=== PATIENT | female | born 1965 | race African-American/Black ===

== ENCOUNTER 2017-03-27 08:47 | Emergency (ER) | payer MEDICARE, MEDICAID ==
[~2017-03-27] VITALS: Ht 172.7 cm; Wt 99.8 kg
[~2017-03-27 08:47] MED LIST: CIPRO500 MG PO; IBUPROFEN600 MG PO; NKM; PYRIDIUM100 MG ORAL
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
[2017-03-27] MEDS ORDERED: NORCO 5-325 TA1 EACH ORAL (09:53)
[2017-03-27] MEDS ORDERED: IBUPROFEN600 MG ORAL (09:53)
--- NOTE | 2017-03-27 10:00 | Diagnostic Imaging Report ---
Indication: Pain Findings: 3 views of the right shoulder were obtained. No acute fractures, malalignment, erosions or periostitis are identified. Soft tissues are unremarkable. Impression: Negative for acute injury
[2017-03-27 10:04] VITALS: BP 123/75
== END 2017-03-27 10:04 | disposition home or self-care (01) ==
LOC: EMR 09:21
DX: S43.401A Unspecified sprain of right shoulder joint, initial encounter (principal); X58.XXXA Exposure to other specified factors, initial encounter; Y93.9 Activity, unspecified; Y92.9 Unspecified place or not applicable; Z88.0 Allergy status to penicillin; I10 Essential (primary) hypertension
CPT/HCPCS: 99283

== ENCOUNTER 2017-04-14 00:12 | Emergency (ER) | payer MEDICARE, MEDICAID ==
[~2017-04-14] VITALS: Ht 172.7 cm; Wt 102.1 kg
[~2017-04-14 00:12] MED LIST changes: +IBUPROFEN600 MG ORAL; +NORCO 5-325 TA1 EACH ORAL
[2017-04-14] MEDS ORDERED: ZOLOFT25 MG ORAL (00:18)
[2017-04-14] MEDS ORDERED: ZYPREXA10 MG ORAL (00:18)
[2017-04-14 02:35] LABS: BASOPHILS % (AUTO) 2.2 % (0.0-2.0); LYMPHOCYTES % (AUTO) 41.8 % (20.0-45.0); MEAN CORPUSCULAR HEMOGLOBIN 31.9 PG (27.0-31.0); MEAN CORPUSCULAR HGB CONC 34.2 G/DL (32.0-36.0); MEAN CORPUSCULAR VOLUME 93 FL (80-99); MONOCYTES % (AUTO) 8.8 % (1.0-10.0); NEUTROPHILS % (AUTO) 45.3 % (45.0-75.0); PLATELET COUNT 301 K/UL (150-450); RED BLOOD COUNT 3.93 M/UL (4.20-5.40); RED CELL DISTRIBUTION WIDTH 11.9 % (11.6-14.8)
[2017-04-14 02:45] LABS: ALANINE AMINOTRANSFERASE 13 U/L (12-78); ALBUMIN/GLOBULIN RATIO 0.8 (1.0-2.7); ANION GAP 9 mmol/L (5-15); ASPARTATE AMINO TRANSFERASE 9 U/L (15-37); CALCIUM 8.9 MG/DL (8.5-10.1); CARBON DIOXIDE 27 MMOL/L (21-32); CHLORIDE 106 MMOL/L (98-107); CREATININE 0.7 MG/DL (0.55-1.30); GLOMERULAR FILTRATION RATE > 60 mL/min (>60); POTASSIUM 3.6 MMOL/L (3.5-5.1); SODIUM 142 MMOL/L (136-145); TOTAL PROTEIN 7.2 G/DL (6.4-8.2)
[2017-04-14] MEDS ORDERED: Ketorolac 30mg Inj IV ONE (03:45)
[2017-04-14] MEDS ORDERED: ALBUTEROL SULF8.5 GM INH (04:12)
[2017-04-14 04:20] VITALS: BP 123/84
--- NOTE | 2017-04-14 05:39 | Emergency Room Report ---
History of Present Illness General Chief Complaint: Upper Respiratory Illness Source: Patient Present Illness HPI Patient is a 51-year-old female who presented after increased cough with nasal congestion and as well as epistaxis. Patient had gradual onset of symptoms. She reports having a prior history of cocaine use she states last use was several months ago. She reports having some hemoptysis as well as some discomfort to her chest. She reports having no fever. She had been having upper after a nasal congestion for several weeks. Allergies: Coded Allergies: PENICILLINS (Verified Allergy, Unknown, 03/27/17) Patient History Past Medical History: see triage record Last Menstrual Period: 03/14/17 Now: No : 5 Para: 5 Reviewed Nursing Documentation: PMH: Agreed, PSxH: Agreed Nursing Documentation-PMH Hx Hypertension: Yes History Of Psychiatric Problem: Yes - Depresion, schizophrenia, substance abuse Review of Systems All Other Systems: negative except mentioned in HPI Physical Exam Vital Signs Date Time Temp Pulse Resp B/P (MAP) Pulse Ox O2 Delivery O2 Flow Rate FiO2 04/14/17 00:13 97.5 81 15 121/81 100 Room Air 04/14/17 00:37 100 Sp02 EP Interpretation: reviewed, normal General Appearance: normal inspection, well appearing, no apparent distress, alert, GCS 15 Head: atraumatic ENT: normal ENT inspection, hearing grossly normal, normal voice Neck: normal inspection, full range of motion, supple, no bony tend Respiratory: normal inspection, lungs clear, normal breath sounds, no respiratory distress, no retraction, no wheezing Cardiovascular #1: regular rate, rhythm, no edema Gastrointestinal: normal inspection, normal bowel sounds, non tender, soft, no guarding, no hernia Genitourinary: no CVA tenderness Musculoskeletal: normal inspection, back normal, normal range of motion Neurologic: normal inspection, alert, oriented x3, responsive, experimental outboard motors mechanic III-XII nml as tested, speech normal Psychiatric: normal inspection, judgement/insight normal, mood/affect normal Skin: normal inspection, normal color, no rash Medical Decision Making Diagnostic Impression: Primary Impression: Hemoptysis, unspecified Additional Impression: Anterior epistaxis ER Course The patient presented for hemoptysis. Differential diagnoses included was not limited to bronchitis, myocardial infarction, upper GI bleed, epistaxis, pulmonary embolism among others.Because of complexity of patient's case laboratory testing and imaging studies were ordered. A CT imaging of the chest read by radiology showed breast implants bilaterally without evident infiltrate or lung abnormality noted. Patient was given Toradol for pain. The patient was noted to have unremarkable laboratory testing. The patient's epistaxis appears to be related to the patient's hemoptysis. Patient is advised to use Vaseline or nares to prevent bleeding. Patient does not appear to be requiring packing at this time. The patient is advised to follow up with primary care doctor in 1-2 days. Patient is advised to return if any worsening condition or if any changes in status that are concerning. Last Vital Signs Date Time Temp Pulse Resp B/P (MAP) Pulse Ox O2 Delivery O2 Flow Rate FiO2 04/14/17 00:37 85 16 Room Air 100 04/14/17 00:13 97.5 121/81 100 Status: improved Disposition: HOME, SELF-CARE Condition: Stable Scripts Albuterol Sulfate* (ALBUTEROL SULFATE MDI*) 8.5 Gm Hfa.aer.ad 2 PUFF INH Q4H Y for cough/wheezing, #1 EA 0 Refills Prov: Hector Christianson 04/14/17 Patient Instructions: Nosebleed Hector Christianson Apr 14, 2017 05:39
--- NOTE | 2017-04-14 09:56 | Diagnostic Imaging Report ---
ndication: Chest pain Technique: IV administration nonionic contrast. Spiral acquisitions obtained from the lung bases to the lung apices. Multiplanar and 3-D reconstructions were generated. Total dose length product 1172 mGycm. CTDIvol(s) 12, 63, 34 mGy. Dose reduction achieved using automated exposure control Comparison: None Findings: There is poor quality bolus opacification of the pulmonary arteries precludes exclusion of all but large central pulmonary emboli. No evidence of thoracic aortic aneurysm or dissection. Normal caliber pulmonary arteries. No evidence of significant right ventricular dilatation. Within the upper mediastinum extending into the cervical region, there is a multiloculated gas collection which measures 2.4 x 2 cm. This is located to the right of the trachea and posterior and inferior to the thyroid lower pole. It is also located to the right of the esophagus. No other abnormal mediastinal gas is demonstrated. No evidence of pneumothorax. The esophagus and trachea appear unremarkable. The lungs demonstrate posterior dependent atelectatic changes, are otherwise clear. No masses, nodules, infiltrates, effusions, or congestion demonstrated. No pericardial effusion. No mediastinal or hilar mass or adenopathy. No axillary or chest wall mass or adenopathy. There are bilateral subglandular breast implants which demonstrates capsular calcifications. The included upper abdominal viscera demonstrate splenomegaly. Note that the spleen is incompletely visualized, however. Impression: Poor contrast bolus, essentially nondiagnostic for exclusion of pulmonary embolus. No gross large vessel central pulmonary embolus demonstrated. 2.4 x 2 cm multiloculated gas collection in the upper mediastinum extending into the cervical region. No CCA fluid or surrounding inflammatory change. This raises concern for esophageal or tracheal perforation. The above findings were not described on the [facility] preliminary report, were described by phone to Dr. Montiel at the time of interpretation. [facility] was also notified through their website Bilateral pulmonary parenchymal dependent atelectatic changes. No acute pulmonary process Lateral breast implants Mild splenomegaly The CT scanner at [facility] is accredited by the [employer] and the scans are performed using protocols designed to limit radiation exposure to as low as reasonably achievable to attain images of sufficient resolution adequate for diagnostic evaluation.
== END 2017-04-14 04:20 | disposition home or self-care (01) ==
LOC: EMR 02:13
DX: R04.0 Epistaxis (principal); R04.2 Hemoptysis; I10 Essential (primary) hypertension; F32.9 Major depressive disorder, single episode, unspecified; F20.9 Schizophrenia, unspecified; Z88.0 Allergy status to penicillin
CPT/HCPCS: 36415; 71275; 80053; 85025; 85610; 85730; 87040; 96374; 99285; J1885; Q9967

== ENCOUNTER 2017-04-14 12:33 | Emergency (ER) | payer MEDICARE, MEDICAID ==
[~2017-04-14] VITALS: Ht 172.7 cm; Wt 102.1 kg
[~2017-04-14 12:33] MED LIST changes: +ALBUTEROL SULF8.5 GM INH; +ZOLOFT25 MG ORAL; +ZYPREXA10 MG ORAL
[2017-04-14] MEDS ORDERED: Ipratropium 0.02% Inh Soln 2.5ml UD HHN ONE (13:45)
[2017-04-14] MEDS ORDERED: Albuterol ud Inhalation HHN ONE (13:45)
[2017-04-14 14:27] VITALS: BP 121/74
--- NOTE | 2017-04-14 14:39 | Emergency Room Report ---
History of Present Illness General Chief Complaint: Dyspnea/Respdistress Source: Patient Present Illness [facility] The patient is a 51-year-old female with Hx of HTN and past cocaine use presenting for hemoptysis, chest pain, and shortness of breath. She states that she first began to have a dry cough 2 weeks prior and then developed hemoptysis yesterday. She describes this as blood in sputum. She presented to the emergency department early this morning and had a CTA done which showed multiloculated gas collection in the upper mediastinum 2.4x2cm. These findings were released after the patient was discharged as they were not in the preliminary reading. The patient was then called regarding these findings and returned. Pain is an 8/10 dull ache to the mid chest and mid upper abdomen. Worse with coughing. She denies other symptoms including N, V, F, chills, dizziness, back pain. She denies recent travel. Allergies: Coded Allergies: PENICILLINS (Verified Allergy, Unknown, 03/27/17) Patient History Past Medical History: see triage record Pertinent Family History: none Social History: Reports: drug use - cocaine Last Menstrual Period: now Now: No Reviewed Nursing Documentation: PMH: Agreed, PSxH: Agreed Nursing Documentation-PMH Past Medical History: No History, Except For Hx Hypertension: Yes Review of Systems All Other Systems: negative except mentioned in HPI Physical Exam Vital Signs Date Time Temp Pulse Resp B/P (MAP) Pulse Ox O2 Delivery O2 Flow Rate FiO2 04/14/17 12:46 97.9 86 16 156/90 99 Room Air Sp02 EP Interpretation: reviewed, normal General Appearance: no apparent distress, alert, GCS 15, non-toxic Head: normocephalic, atraumatic Eyes: bilateral eye normal inspection, bilateral eye PERRL ENT: hearing grossly normal, normal pharynx, no angioedema, normal voice, uvula midline Neck: full range of motion, supple/symm/no masses Respiratory: normal inspection, chest non-tender, lungs clear, normal breath sounds, no rhonchi, no respiratory distress, speaking full sentences Cardiovascular #1: regular rate, rhythm, no edema Genitourinary: normal inspection, no CVA tenderness Musculoskeletal: back normal, gait/station normal, normal range of motion, non- tender, calf tenderness Neurologic: alert, oriented x3, responsive, motor strength/tone normal, sensory intact, speech normal Psychiatric: judgement/insight normal, memory normal, mood/affect normal, no suicidal/homicidal ideation Skin: normal color, no rash, warm/dry, well hydrated Medical Decision Making PA Attestation Dr. Montiel is my supervising physician. Patient management was discussed with my supervising physician Diagnostic Impression: Primary Impression: Pneumomediastinum ER Course The patient is a 51-year-old female presenting for hemoptysis, shortness of breath, chest pain Differential diagnoses considered but not limited to: bronchitis, PNA, pneumomediastinum, PE, esophageal or tracheal rupture, among others PE: NAD Respirations 16, 02 sat 99% on RA HEENT unremarkable. RRR Lungs CTA bilat Chest is non tender Abd soft and non tender CXR: There is a pneumomediastinum consistent with previous CT scan Discussed case with Dr. Beavers (thoracic surgery) and the admitting doctor, Dr. Orona at [facility]. Pt will be transferred for higher level of care. Pt agrees with this plan. The patient is given IV Cipro as she is allergic to PCN. Placed on NPO. She is given a breathing treatment and feels better. She will be monitored in the emergency department until she is transferred Laboratory Tests Test 04/14/17 14:25 White Blood Count 6.4 K/UL (4.8-10.8) Red Blood Count 3.87 M/UL (4.20-5.40) L Hemoglobin 11.9 G/DL (12.0-16.0) L Hematocrit 36.3 % (37.0-47.0) L Mean Corpuscular Volume 94 FL (80-99) Mean Corpuscular Hemoglobin 30.6 PG (27.0-31.0) Mean Corpuscular Hemoglobin Concent 32.7 G/DL (32.0-36.0) Red Cell Distribution Width 12.0 % (11.6-14.8) Platelet Count 316 K/UL (150-450) Mean Platelet Volume 6.1 FL (6.5-10.1) L Neutrophils (%) (Auto) 55.5 % (45.0-75.0) Lymphocytes (%) (Auto) 33.8 % (20.0-45.0) Monocytes (%) (Auto) 8.3 % (1.0-10.0) Eosinophils (%) (Auto) 1.3 % (0.0-3.0) Basophils (%) (Auto) 1.2 % (0.0-2.0) Prothrombin Time 10.0 SEC (9.30-11.50) Prothrombin Time INR 1.0 (0.9-1.1) PTT 24 SEC (23-33) Sodium Level 142 MMOL/L (136-145) Potassium Level 3.7 MMOL/L (3.5-5.1) Chloride Level 105 MMOL/L (98-107) Carbon Dioxide Level 27 MMOL/L (21-32) Anion Gap 11 mmol/L (5-15) Blood Urea Nitrogen 12 mg/dL (7-18) Creatinine 0.6 MG/DL (0.55-1.30) Estimate Glomerular Filtration Rate > 60 mL/min (>60) Glucose Level 74 MG/DL (74-106) Calcium Level 9.0 MG/DL (8.5-10.1) Total Bilirubin 0.3 MG/DL (0.2-1.0) Aspartate Amino Transferase (AST) 9 U/L (15-37) L Alanine Aminotransferase (ALT) 15 U/L (12-78) Alkaline Phosphatase 61 U/L (46-116) Total Protein 7.4 G/DL (6.4-8.2) Albumin 3.3 G/DL (3.4-5.0) L Globulin 4.1 g/dL Albumin/Globulin Ratio 0.8 (1.0-2.7) L Lab Results Impression Unremarkable EKG Diagnostic Results EP Interpretation: NSR Rate: normal - 70 Rhythm: NSR ST Segments: no acute changes ASA given to the pt in ED: No PA Scribe Text EKG was reviewed and read with my supervising physician. No acute ST segment changes are seen. Normal rate and rhythm. No acute changes. Chest X-Ray Diagnostic Results Chest X-Ray Diagnostic Results : Chest X-Ray Ordered: Yes # of Views/Limited/Complete: 1 View Indication: Chest Pain EP Interpretation: Yes Interpretation: other - pneumomediastinum Impression: Other - Pneumomediastinum Electronically Signed by: Bakari Madrid PA-C PA Scribe Text I have discussed chest x-ray findings with my supervising physician. There is a pneumomediastinum consistent with previous CT scan Last Vital Signs Date Time Temp Pulse Resp B/P (MAP) Pulse Ox O2 Delivery O2 Flow Rate FiO2 04/14/17 14:27 74 16 121/74 100 Room Air 04/14/17 12:46 97.9 Status: improved Disposition: XFER SHT-TRM HOSP Condition: Stable Referrals: NOT CHOSEN IPA/,REFERRING (PCP) BAKARI MADRID Apr 14, 2017 14:38
[2017-04-14] MEDS ORDERED: Morphine Sulfate 4mg/ml Inj IVP ONE (14:45)
[2017-04-14 14:53] LABS: BASOPHILS % (AUTO) 1.2 % (0.0-2.0); EOSINOPHILS % (AUTO) 1.3 % (0.0-3.0); LYMPHOCYTES % (AUTO) 33.8 % (20.0-45.0); MEAN CORPUSCULAR HEMOGLOBIN 30.6 PG (27.0-31.0); MEAN CORPUSCULAR HGB CONC 32.7 G/DL (32.0-36.0); MEAN CORPUSCULAR VOLUME 94 FL (80-99); MEAN PLATELET VOLUME 6.1 FL (6.5-10.1); MONOCYTES % (AUTO) 8.3 % (1.0-10.0); NEUTROPHILS % (AUTO) 55.5 % (45.0-75.0); PLATELET COUNT 316 K/UL (150-450); RED BLOOD COUNT 3.87 M/UL (4.20-5.40); WHITE BLOOD COUNT 6.4 K/UL (4.8-10.8)
[2017-04-14 15:12] LABS: ALANINE AMINOTRANSFERASE 15 U/L (12-78); ALBUMIN/GLOBULIN RATIO 0.8 (1.0-2.7); ANION GAP 11 mmol/L (5-15); ASPARTATE AMINO TRANSFERASE 9 U/L (15-37); CARBON DIOXIDE 27 MMOL/L (21-32); CHLORIDE 105 MMOL/L (98-107); CREATININE 0.6 MG/DL (0.55-1.30); GLOMERULAR FILTRATION RATE > 60 mL/min (>60); POTASSIUM 3.7 MMOL/L (3.5-5.1); SODIUM 142 MMOL/L (136-145); TOTAL PROTEIN 7.4 G/DL (6.4-8.2)
[2017-04-14 15:33] VITALS: BP 122/76
--- NOTE | 2017-04-14 16:01 | Diagnostic Imaging Report ---
Indication: COUGH Technique: One view of the chest Comparison: Reference made to chest CT of earlier the same day Findings: The heart size is normal. The lungs and pleural space are clear. A lucency to the right of the trachea in the supraclavicular region correlates to the small focal pneumomediastinum described on recent chest CT. Bilateral breast implants are noted Impression: Lucency to the right of the trachea in the supraclavicular region presumably represents the small focal pneumomediastinum described on recent chest CT. Of note, this appears slightly smaller than it does on the aquacultural worker supervisor radiograph of the prior chest CT No acute process otherwise Findings were discussed by phone with nurse Bakari practitioner In the emergency room
[2017-04-14 16:45] VITALS: BP 116/71
[2017-04-14 18:30] VITALS: BP 119/71
[2017-04-14 19:34] VITALS: BP 119/71
--- NOTE | 2017-04-15 15:12 | Cardiology Report ---
APPROVED REPORT EKG Measurement Heart [id number] FL [id number] Normal sinus rhythm Normal ECG
== END 2017-04-14 19:55 | disposition short-term general hospital (02) ==
LOC: EMR 13:10
DX: J98.2 Interstitial emphysema (principal); I10 Essential (primary) hypertension; Z88.0 Allergy status to penicillin; F14.10 Cocaine abuse, uncomplicated
CPT/HCPCS: 36415; 71010; 80053; 85025; 85610; 85730; 93005; 94640; 94664; 96365; 96375; 99285; J0744; J2270

== ENCOUNTER 2018-10-15 16:05 | Emergency (ER) | payer MEDICARE, MEDICAID ==
[~2018-10-15] VITALS: Ht 172.7 cm; Wt 81.2 kg
[~2018-10-15 16:05] MED LIST changes: +ACETAMINOPHEN-1 EAC1 ORAL; +NITROFURANTOIN100 M2 ORAL; +ONDANSETRON ODT4 MG BC; +PRENATAL COMPL1 EAC1 PO; +TYLENOL325 MG ORAL
[2018-10-15] MEDS ORDERED: Ketorolac 30mg Inj IV ONE (16:30)
[2018-10-15 17:02] LABS: APPEARANCE,URINE SLIGHTLY CLOUDY; BILIRUBIN, URINE 1+ (NEGATIVE); GLUCOSE, URINE (UA) NEGATIVE (NEGATIVE); KETONES,URINE 4+ (NEGATIVE); LEUKOCYTE ESTERASE ,URINE 1+ (NEGATIVE); NITRITE,URINE NEGATIVE (NEGATIVE); PH,URINE 6 (4.5-8.0); PROTEIN,URINE 2+ (NEGATIVE); UROBILINOGEN,URINE 4 MG/DL (0.0-1.0)
[2018-10-15 17:05] LABS: BASOPHILS % (AUTO) 1.4 % (0.0-2.0); EOSINOPHILS % (AUTO) 0.6 % (0.0-3.0); HEMATOCRIT 43.2 % (37.0-47.0); HEMOGLOBIN 14.5 G/DL (12.0-16.0); LYMPHOCYTES % (AUTO) 31.6 % (20.0-45.0); MEAN CORPUSCULAR VOLUME 88 FL (80-99); MONOCYTES % (AUTO) 7.4 % (1.0-10.0); PLATELET COUNT 293 K/UL (150-450); RED BLOOD COUNT 4.89 M/UL (4.20-5.40); RED CELL DISTRIBUTION WIDTH 12.1 % (11.6-14.8); WHITE BLOOD COUNT 7.2 K/UL (4.8-10.8)
[2018-10-15 17:06] VITALS: BP 164/106
[2018-10-15 17:12] LABS: COLOR,URINE AMBER
--- NOTE | 2018-10-15 17:12 | NUR ---
ED Nurse Note: pt was dropped off walked in from home c/o abd pain n/v/d sl established blood and urine sent ivf up infusing and med given . will monitor.
[2018-10-15 17:14] LABS: ANION GAP 11 mmol/L (5-15); BLOOD UREA NITROGEN 6 mg/dL (7-18); CALCIUM 9.6 MG/DL (8.5-10.1); CARBON DIOXIDE 24 MMOL/L (21-32); CHLORIDE 102 MMOL/L (98-107); CREATININE 0.6 MG/DL (0.55-1.30); POTASSIUM 4.3 MMOL/L (3.5-5.1); SODIUM 137 MMOL/L (136-145)
[2018-10-15 17:18] LABS: ALANINE AMINOTRANSFERASE 11 U/L (12-78); ALBUMIN 3.8 G/DL (3.4-5.0); ALBUMIN/GLOBULIN RATIO 0.8 (1.0-2.7); ALKALINE PHOSPHATASE 70 U/L (46-116); ASPARTATE AMINO TRANSFERASE 18 U/L (15-37)
--- NOTE | 2018-10-15 17:45 | Emergency Room Report ---
History of Present Illness General Chief Complaint: Nausea, Vomiting, and Diarrhea Source: Patient Present Illness Allergies: Coded Allergies: PENICILLINS (Verified Allergy, Unknown, 03/27/17) Patient History Last Menstrual Period: 09/2018 Now: No Nursing Documentation-[facility] Past Medical History: No History, Except For Hx Hypertension: Yes Physical Exam Vital Signs Date Time Temp Pulse Resp B/P (MAP) Pulse Ox O2 Delivery O2 Flow Rate FiO2 10/15/18 16:08 98.2 97 20 174/115 98 Room Air Medical Decision Making Diagnostic Impression: Primary Impression: Abscess and cellulitis of gluteal region Additional Impression: Nausea, vomiting, and diarrhea ER Course RIght buttock, drained, no fluctuance Last Vital Signs Date Time Temp Pulse Resp B/P (MAP) Pulse Ox O2 Delivery O2 Flow Rate FiO2 10/15/18 17:06 98.2 84 18 164/106 100 Room Air Disposition: HOME, SELF-CARE Condition: Stable Referrals: NON PHYSICIAN (PCP) Patient Instructions: Abscess, [id number], Diarrhea, Adult, [id number], Nausea and Vomiting, Adult, [id number] Additional Instructions: Take medications as directed. Follow up with a Primary Care Provider in 3-5 days, even if your symptoms have resolved. --Please review list of primary care clinics, if you do not already have a primary care provider Return sooner to ED if new symptoms occur, or current symptoms become worse. - Please note that this Emergency Department Report was dictated using [employer] rep technology software, occasionally this can lead to erroneous entry secondary to interpretation by the dictation equipment. Krystina Castillo Oct 15, 2018 17:45
[2018-10-15] MEDS ORDERED: CEPHALEXIN500 MG ORAL (17:47)
[2018-10-15] MEDS ORDERED: DICYCLOMINE HCL10 MG PO (17:47)
[2018-10-15] MEDS ORDERED: BACTRIM DS TAB1 EAC1 ORAL (17:47)
[2018-10-15] MEDS ORDERED: ONDANSETRON ODT4 MG BC (17:47)
[2018-10-15] MEDS ORDERED: IBUPROFEN600 MG ORAL (17:47)
[2018-10-15 19:18] VITALS: BP 158/89
--- NOTE | 2018-10-15 19:20 | NUR ---
ED Nurse Note: p tgiven aci and script verbalized understanding ambulated out of er with strong and steady gait.
== END 2018-10-15 19:21 | disposition home or self-care (01) ==
LOC: EMR 16:42
DX: L02.31 Cutaneous abscess of buttock (principal); L03.317 Cellulitis of buttock; R11.2 Nausea with vomiting, unspecified; R19.7 Diarrhea, unspecified; I10 Essential (primary) hypertension; Z88.0 Allergy status to penicillin
CPT/HCPCS: 36415; 80053; 81003; 83690; 85025; 96361; 96374; 96375; 99284; J1885; J2405

== ENCOUNTER 2019-03-18 01:08 | Emergency (ER) | payer MEDICARE, MEDICAID ==
[~2019-03-18] VITALS: Ht 172.7 cm; Wt 72.6 kg
[~2019-03-18 01:08] MED LIST changes: +BACTRIM DS TAB1 EAC1 ORAL; +CEPHALEXIN500 MG ORAL; +DICYCLOMINE HCL10 MG PO
[2019-03-18 01:17] VITALS: BP 157/107
--- NOTE | 2019-03-18 01:17 | NUR ---
ED Nurse Note: Patient walked in due to anxiety after ingesting Protab Delta-8, 2 tabs today about 0000. Pt stated "I am paranoid right now". Denies pain, n/v, shortness of breath. Patient appears to be anxious but is calm and cooperative. Alert and oriented, verbally responsive. Breathing even and unlabored. Afebrile. Able to walk with steady gait. VSS.
--- NOTE | 2019-03-18 01:27 | Emergency Room Report ---
History of Present Illness General Chief Complaint: Substance Abuse Source: Patient Present Illness HPI Patient presents reporting that she feels very" paranoid" and uneasy after taking 2 marijuana pills patient took them about 1-1/2 hours ago Now reports feeling very anxious And does not like the way she feels denies any headache denies any chest pain Denies any back or flank pain Denies any auditory or visual hallucinations Allergies: Coded Allergies: PENICILLINS (Verified Allergy, Unknown, 03/27/17) Patient History Past Medical History: see triage record Last Menstrual Period: 02/2019 Now: No Reviewed Nursing Documentation: PMH: Agreed; PSxH: Agreed Nursing Documentation-PMH Hx Hypertension: Yes Review of Systems All Other Systems: negative except mentioned in HPI Physical Exam Vital Signs Date Time Temp Pulse Resp B/P (MAP) Pulse Ox O2 Delivery O2 Flow Rate FiO2 03/18/19 01:11 97.5 100 18 157/107 (124) 100 Sp02 EP Interpretation: reviewed, normal General Appearance: other - Mildly anxious Head: normocephalic, atraumatic Eyes: bilateral eye PERRL, bilateral eye EOMI ENT: hearing grossly normal, normal pharynx, TMs + canals normal, uvula midline Neck: full range of motion, supple, no meningismus, no bony tend Respiratory: lungs clear, normal breath sounds, no rhonchi, no respiratory distress, no retraction, no accessory muscle use Cardiovascular #1: normal peripheral pulses, regular rate, rhythm, no edema, no gallop, no JVD, no murmur Gastrointestinal: normal bowel sounds, non tender, soft, no mass, no organomegaly, non-distended, no guarding, no hernia, no pulsatile mass, no rebound Genitourinary: no CVA tenderness Musculoskeletal: normal inspection Neurologic: oriented x3, responsive, supervisor cytology III-XII nml as tested, motor strength/ tone normal, sensory intact Psychiatric: anxious Skin: no rash Lymphatic: normal inspection, no adenopathy Medical Decision Making Diagnostic Impression: Primary Impression: Substance abuse ER Course Multiple differentials and consideration including but not limited to electrolyte pathology, drug reaction Patient remains neurologically intact Muscle skeletal exam is normal After initial dosing of benzodiazepine patient feels significantly improved And resting after further observation patient reports that she feels well I would like to try and sleep at home patient disposition for close outpatient follow-up Last Vital Signs Date Time Temp Pulse Resp B/P (MAP) Pulse Ox O2 Delivery O2 Flow Rate FiO2 03/18/19 01:11 97.5 100 18 157/107 (124) 100 Status: improved Disposition: HOME, SELF-CARE Condition: Improved Additional Instructions: Patient is provided with the discharge instructions notified to follow up with primary doctor in the next 2-3 days otherwise return to the er with any worsening symptoms. Please note that this report is being documented using DRAGON technology. This can lead to erroneous entry secondary to incorrect interpretation by the dictating instrument. Mary Landin DO Mar 18, 2019 01:27
[2019-03-18] MEDS ORDERED: LORazepam 1mg tab ORAL ONE (01:30)
[2019-03-18 03:16] VITALS: BP 145/91
--- NOTE | 2019-03-18 03:17 | NUR ---
ED Nurse Note: Patient seen sleeping in bed. Breathing even and unlabored. No SOB. VSS. Will cont to monitor.
[2019-03-18 04:09] VITALS: BP 138/78
--- NOTE | 2019-03-18 04:09 | NUR ---
ED Nurse Note: Pt cleared by ERMD for discharge. DC instructions was given and explained to pt and verbalized understanding of teachings. All medical devices such as ID band removed. Pt is AAO x4, ambulatory and left with all personal belongings.
== END 2019-03-18 04:09 | disposition home or self-care (01) ==
LOC: EMR 01:34
DX: F12.10 Cannabis abuse, uncomplicated (principal); F41.0 Panic disorder [episodic paroxysmal anxiety]; I10 Essential (primary) hypertension; Z88.0 Allergy status to penicillin
CPT/HCPCS: 99282

== ENCOUNTER 2019-04-30 11:31 | Emergency (ER) | payer MEDICARE, MEDICAID ==
[~2019-04-30] VITALS: Ht 172.7 cm; Wt 68.0 kg
[2019-04-30] MEDS ORDERED: NKM (11:38)
[2019-04-30 11:42] VITALS: BP 132/94
--- NOTE | 2019-04-30 11:43 | NUR ---
ED Nurse Note: Patient walked in to ER from home due to chronic back and chest pain since she got weight loss surgery few months ago. pt aao x4 and ambulatory. skin clean and intact. asking for pain medication and agitated but follows commands. no acute distress noted at this time.
--- NOTE | 2019-04-30 11:44 | NUR ---
ED Nurse Note: EKG at bedside.
[2019-04-30] MEDS ORDERED: oxyCODONE HCL/Acetaminophen 5/325mg ORAL ONE (12:00)
--- NOTE | 2019-04-30 12:04 | Emergency Room Report ---
History of Present Illness General Chief Complaint: Pain Source: Patient Present Illness HPI Patient presents with 2 problems. One is right low back pain. This is worsened after she had weight loss surgery. She is lost 160 pounds. She feels it in her right flank but also radiates down into her leg somewhat. She has had back x-rays before that reveal osteoarthritis. The pain is 9/10 at this time. She had to buy illegal [place] to control the pain recently. In the past she is used Tylenol codeine and also tramadol. She denies dysuria. She is on her menstruation at this time. She does not take blood thinners, health, has no oncologic problems and does not use IV drugs. The second problem is epigastric pain. This radiates up into her chest. She feels it burning. This also is is fairly severe pain. She denies any vomiting but has nausea. She had endoscopy 3 to 4 months ago that revealed inflammation but no H pylori. She was taking Pepcid but stopped a month ago. Last night she also drank some tonie. Denies hematemesis, coffee grounds or melena. The patient tried THC for the pain. This led to a psychotic episode and she was treated here with Ativan. She has been under a lot of stress recently. She recently ended her job. No fevers, chills, sore throat, chest pain, palpitations, diarrhea, dysuria, shortness of breath, rashes, depression, anxiety, visual changes, dizziness, headache. Allergies: Coded Allergies: PENICILLINS (Verified Allergy, Unknown, 03/27/17) Patient History Past Medical History: see triage record Past Surgical History: other - weight loss surgery 2017 Social History: Reports: alcohol use, drug use - HC, adverse reaction; Denies: smoking Social History Narrative outcomes manager for homeless Last Menstrual Period: currently Reviewed Nursing Documentation: PMH: Agreed; PSxH: Agreed Nursing Documentation-PMH Past Medical History: No History, Except For Hx Cardiac Problems: No - wt loss surgery Hx Hypertension: Yes Review of Systems All Other Systems: negative except mentioned in HPI Physical Exam Vital Signs Date Time Temp Pulse Resp B/P (MAP) Pulse Ox O2 Delivery O2 Flow Rate FiO2 04/30/19 11:34 97.9 90 18 132/94 (107) 98 Room Air Sp02 EP Interpretation: reviewed, normal General Appearance: well appearing, no apparent distress, GCS 15, other - Immediately asking for pain medicine Head: normocephalic Eyes: bilateral eye PERRL, bilateral eye EOMI, bilateral eye other - Exophthalmos ENT: moist mucus membranes Neck: supple Respiratory: lungs clear, normal breath sounds Cardiovascular #1: regular rate, rhythm Cardiovascular #2: 2+ radial (R) Gastrointestinal: normal inspection, normal bowel sounds, no mass, non- distended, no guarding, no rebound, tenderness - Epigastric Genitourinary: no CVA tenderness Musculoskeletal: gait/station normal, normal range of motion, other - Lumbar tenderness Neurologic: alert, oriented x3, grossly normal Psychiatric: anxious Skin: no rash Medical Decision Making Diagnostic Impression: Primary Impression: Back pain Qualified Codes: M54.5 - Low back pain; G89.29 - Other chronic pain Additional Impression: Gastritis Qualified Codes: K29.00 - Acute gastritis without bleeding ER Course Patient presents with right flank pain, lumbar pain and chest pain from her upper abdomen. Differential includes exacerbation of lumbar pain, pyelonephritis, UTI, pancreatitis, gastritis, esophagitis amongst others. We also need to exclude acute myocardial infarction. Valuation with EKG and labs. She states she has not been eating well and therefore IV hydration is indicated. Patient was given a dose of Pepcid, Zofran and Percocet. Given the history and physical imaging is not indicated at this time. EKG sinus rhythm with occasional PVCs. Nonspecific ST-T wave changes. Labs unremarkable. Patient improved with treatment. Discussed treatment plan with patient. Patient stable for outpatient observation and treatment. Laboratory Tests Test 04/30/19 12:10 04/30/19 13:17 White Blood Count 5.0 K/UL (4.8-10.8) Red Blood Count 4.46 M/UL (4.20-5.40) Hemoglobin 13.5 G/DL (12.0-16.0) Hematocrit 41.3 % (37.0-47.0) Mean Corpuscular Volume 93 FL (80-99) Mean Corpuscular Hemoglobin 30.2 PG (27.0-31.0) Mean Corpuscular Hemoglobin Concent 32.6 G/DL (32.0-36.0) Red Cell Distribution Width 12.0 % (11.6-14.8) Platelet Count 313 K/UL (150-450) Mean Platelet Volume 5.6 FL (6.5-10.1) L Neutrophils (%) (Auto) 47.8 % (45.0-75.0) Lymphocytes (%) (Auto) 42.0 % (20.0-45.0) Monocytes (%) (Auto) 7.6 % (1.0-10.0) Eosinophils (%) (Auto) 1.1 % (0.0-3.0) Basophils (%) (Auto) 1.4 % (0.0-2.0) Prothrombin Time 10.7 SEC (9.30-11.50) Prothrombin Time INR 1.0 (0.9-1.1) PTT 25 SEC (23-33) Sodium Level 142 MMOL/L (136-145) Potassium Level 3.8 MMOL/L (3.5-5.1) Chloride Level 108 MMOL/L (98-107) H Carbon Dioxide Level 30 MMOL/L (21-32) Anion Gap 5 mmol/L (5-15) Blood Urea Nitrogen 6 mg/dL (7-18) L Creatinine 0.5 MG/DL (0.55-1.30) L Estimate Glomerular Filtration Rate > 60 mL/min (>60) Glucose Level 99 MG/DL (74-106) Calcium Level 8.6 MG/DL (8.5-10.1) Total Bilirubin 0.6 MG/DL (0.2-1.0) Aspartate Amino Transferase (AST) 14 U/L (15-37) L Alanine Aminotransferase (ALT) 13 U/L (12-78) Alkaline Phosphatase 65 U/L (46-116) Troponin I 0.000 ng/mL (0.000-0.056) Total Protein 7.5 G/DL (6.4-8.2) Albumin 3.7 G/DL (3.4-5.0) Globulin 3.8 g/dL Albumin/Globulin Ratio 1.0 (1.0-2.7) Lipase 128 U/L (73-393) Thyroid Stimulating Hormone (TSH) 0.504 uiU/mL (0.358-3.740) Serum Alcohol < 3 mg/dL Urine Color Yellow Urine Appearance Clear Urine pH 7 (4.5-8.0) Urine Specific [place] 1.010 (1.005-1.035) Urine Protein Negative (NEGATIVE) Urine Glucose (UA) Negative (NEGATIVE) Urine Ketones Negative (NEGATIVE) Urine Blood Negative (NEGATIVE) Urine Nitrite Negative (NEGATIVE) Urine Bilirubin Negative (NEGATIVE) Urine Urobilinogen 1 MG/DL (0.0-1.0) H Urine Leukocyte Esterase Negative (NEGATIVE) Urine Opiates Screen Negative (NEGATIVE) Urine Barbiturates Screen Negative (NEGATIVE) Phencyclidine (PCP) Screen Negative (NEGATIVE) Urine Amphetamines Screen Negative (NEGATIVE) Urine Benzodiazepines Screen Negative (NEGATIVE) Urine Cocaine Screen Negative (NEGATIVE) Urine Marijuana (THC) Screen Negative (NEGATIVE) EKG Diagnostic Results Rate: normal Rhythm: NSR ST Segments: no acute changes - Nonspecific ST-T wave changes Rhythm Strip Diag. Results EP Interpretation: yes Rhythm: NSR, other - Rate 71 occasional PVCs Last Vital Signs Date Time Temp Pulse Resp B/P (MAP) Pulse Ox O2 Delivery O2 Flow Rate FiO2 04/30/19 14:44 98.8 95 17 135/78 98 Room Air Status: improved Disposition: HOME, SELF-CARE Condition: Improved Scripts Ondansetron Odt* (ZOFRAN ODT*) 4 Mg Tab.rapdis 4 MG BC EVERY 8 HOURS, #10 TAB 1 Refill Prov: Anthony Wright MD 04/30/19 Tramadol Hcl* (ULTRAM*) 50 Mg Tablet 50 MG ORAL Q6H PRN for For Pain, #10 TAB 0 Refills Prov: Anthony Wright MD 04/30/19 Famotidine (FAMOTIDINE) 20 Mg Tablet 20 MG ORAL DAILY, #30 TAB 0 Refills Prov: Anthoyn Wright MD 04/30/19 Acetaminophen (Tylenol) 325 Mg Tablet 650 MG ORAL Q6H PRN for Prn Pain/Headache/Temp > 101, #20 TAB 0 Refills Prov: Anthony Wright MD 04/30/19 Anthony Wright MD Apr 30, 2019 12:03
--- NOTE | 2019-04-30 12:51 | NUR ---
ED Nurse Note: pt ambulated to bathroom with steady gait.
[2019-04-30 13:06] LABS: BASOPHILS % (AUTO) 1.4 % (0.0-2.0); EOSINOPHILS % (AUTO) 1.1 % (0.0-3.0); HEMATOCRIT 41.3 % (37.0-47.0); HEMOGLOBIN 13.5 G/DL (12.0-16.0); MEAN CORPUSCULAR VOLUME 93 FL (80-99); MONOCYTES % (AUTO) 7.6 % (1.0-10.0); NEUTROPHILS % (AUTO) 47.8 % (45.0-75.0); PLATELET COUNT 313 K/UL (150-450); RED BLOOD COUNT 4.46 M/UL (4.20-5.40)
[2019-04-30 13:28] LABS: ANION GAP 5 mmol/L (5-15); BLOOD UREA NITROGEN 6 mg/dL (7-18); CALCIUM 8.6 MG/DL (8.5-10.1); CARBON DIOXIDE 30 MMOL/L (21-32); CHLORIDE 108 MMOL/L (98-107); CREATININE 0.5 MG/DL (0.55-1.30); POTASSIUM 3.8 MMOL/L (3.5-5.1); SODIUM 142 MMOL/L (136-145)
[2019-04-30 13:31] LABS: ALANINE AMINOTRANSFERASE 13 U/L (12-78); ALBUMIN 3.7 G/DL (3.4-5.0); ALKALINE PHOSPHATASE 65 U/L (46-116); ASPARTATE AMINO TRANSFERASE 14 U/L (15-37); BILIRUBIN,TOTAL 0.6 MG/DL (0.2-1.0)
[2019-04-30 13:38] LABS: BILIRUBIN, URINE NEGATIVE (NEGATIVE); COLOR,URINE YELLOW; GLUCOSE, URINE (UA) NEGATIVE (NEGATIVE); KETONES,URINE NEGATIVE (NEGATIVE); LEUKOCYTE ESTERASE ,URINE NEGATIVE (NEGATIVE); NITRITE,URINE NEGATIVE (NEGATIVE); PH,URINE 7 (4.5-8.0); PROTEIN,URINE NEGATIVE (NEGATIVE); UROBILINOGEN,URINE 1 MG/DL (0.0-1.0)
[2019-04-30 13:39] LABS: APPEARANCE,URINE CLEAR
[2019-04-30] MEDS ORDERED: ONDANSETRON ODT4 MG BC (14:25)
[2019-04-30] MEDS ORDERED: FAMOTIDINE20 MG ORAL (14:25)
[2019-04-30] MEDS ORDERED: TRAMADOL HCL50 MG ORAL (14:25)
[2019-04-30] MEDS ORDERED: TYLENOL325 MG ORAL (14:25)
[2019-04-30 14:44] VITALS: BP 135/78
--- NOTE | 2019-04-30 14:46 | NUR ---
ED Nurse Note: Pt cleared by health care Provider for discharge. Patient verbalized improved pain level. DC instructions/prescription was given and explained to pt and verbalized understanding of teachings. All medical deviecs such as ID band removed. Pt is AAO x4, ambulatory and left with all personal belongings.
== END 2019-04-30 14:45 | disposition home or self-care (01) ==
LOC: EMR 11:50
DX: M54.5 Low back pain (principal); G89.29 Other chronic pain; K29.00 Acute gastritis without bleeding; I10 Essential (primary) hypertension; Z88.0 Allergy status to penicillin
CPT/HCPCS: 36415; 80053; 80307; 81003; 83690; 84443; 84484; 85025; 85610; 85730; 96361; 96374; 99284; G0480; S0028; J7030